=== PATIENT | male | born 1935 | race Asian ===

== ENCOUNTER 2019-02-28 10:23 | Day surgery (SDC) | payer OTHER, BC ==
[2019-02-25 15:45] VITALS: BMI 24.7
[2019-02-28] MEDS ORDERED: PROPOFOL 20 ML ONE ×4 (11:18)
[2019-02-28] MEDS ORDERED: LIDOCAINE HCL/PF 2% SDV 5ML VIAL ONE (11:18)
[2019-02-28 12:33] VITALS: BP 114/62; PULSE 73; TEMP 98.2
--- NOTE | 2019-03-07 11:47 | PATH ---
Surgical Pathology Report Patient Name: JUSTICE ACHARYA [facility]. Rec. #: [id number] /Age/Gender: 1935 (Age: 83) / M Account: [id number] Location: [facility] Taken: 02/28/2019 Received: 02/28/2019 Reported: 03/07/2019 Physicians: Deondre Schaffer M.D. Specimen(s) Received A: SECOND PORTION OF DUODENUM B: GASTRIC ANTRUM Clinical History GERD Postoperative diagnosis: Normal upper Final Diagnosis A. SECOND PORTION OF DUODENUM, BIOPSY: DUODENAL MUCOSA WITH NO PATHOLOGIC FINDINGS. B. GASTRIC ANTRUM, BIOPSY: MILD CHRONIC GASTRITIS. IMMUNOSTAIN IS NEGATIVE FOR H. PYLORI ORGANISMS. Electronically Signed Juanita Cody M.D. Gross Description A. Received in formalin, labeled, "second portion of duodenum" is one piece of reddy tissue, measuring 0.3 cm in greatest dimension. Entirely submitted in one cassette. B. Received in formalin, labeled "gastric antrum" are two pieces of reddy tissue each up to 0.3 cm in greatest dimension. Entirely submitted in one cassette.
== END 2019-02-28 12:33 | disposition home or self-care (01) ==
LOC: FASU-ENDO 10:23
PROVIDERS: ATTEND Internal Medicine Gastroenterology
PROC: 0DB68ZX Excision of Stomach, Via Natural or Artificial Opening Endoscopic, Diagnostic (ICD-10-PCS; 2019-02-28)
PROC: 0DB98ZX Excision of Duodenum, Via Natural or Artificial Opening Endoscopic, Diagnostic (ICD-10-PCS; principal; 2019-02-28 11:31)
DX: K29.50 Unspecified chronic gastritis without bleeding (principal); R12 Heartburn
CPT/HCPCS: 88305-TC; 88342-TC